=== PATIENT | female | born 1965 | race Caucasian/White ===

== ENCOUNTER → 2017-12-09 | Outpatient (CLI) | payer OTHER ==
[~2017-12-09] MED LIST: ACET500 PO; ALBU90OI INH; ASPI325 PO; ATOR40TA; AZIT250 PO; BLOOD PRESSURE MED; CALCA500CH PO; CLIN300; CYCL10 PO; Cipro500 MG PO; DIAZ10; DIPATR PO; Dilaudid 2 mg Ta2 MG PO; FURO40; Flagyl500 MG PO; HYDACE5325 PO; HYDMOR2 PO; HYDMOR4 PO; IBUP800 PO; INSLIS75I SC; LEVFLO500 PO; LORA1 PO; Ms Contin100 MG PO; OMEP20ER PO; ONDA4ODT MM; OXYACE5T PO; OXYC5; POTASSIUM; PRED20 PO; PROM25 PO; PROZAC20 MG PO; Pepcid40 MG PO; Percocet 2.5-31 EACH PO; Percocet 5-3251 EACH PO; QVAR REDIHALE10.6 G1 INH; RXHYD5325 PO; RXOXYACE PO; Roxicodone5 MG PO; SENN187 PO; SUCR1 PO; SULTRIDS PO; ZESTORETIC 20-1 EAC1 PO; ZOLP5; Zofran Odt4 MG PO
[2017-12-09 18:58] LABS: Percent Saturation 36.4 % (15.0-50.0)
== END | disposition home or self-care (01) ==
LOC: LAB 14:00
PROVIDERS: Internal Medicine Hematology & Oncology
DX: C21.1 Malignant neoplasm of anal canal (principal); M25.50 Pain in unspecified joint; R91.8 Other nonspecific abnormal finding of lung field
CPT/HCPCS: 82728; 83540; 83550

== ENCOUNTER → 2018-03-15 | Outpatient (CLI) | payer MEDICARE ==
[~2018-03-15] MED LIST changes: +FLUO20 PO; -LEVFLO500 PO; +LISHYD2025 PO; -PROZAC20 MG PO; -QVAR REDIHALE10.6 G1 INH; -SENN187 PO; -ZESTORETIC 20-1 EAC1 PO
[2018-03-15 18:53] LABS: Alanine Aminotransfer (ALT/SGP 48 U/L (12-78); Albumin, Blood 3.9 g/dL (3.4-5.0); Alk Phos 136 U/L (50-136); Anion Gap 12 mmol/L (6-16); Aspartate Aminotrans (AST/SGOT 46 U/L (12-37); Bilirubin, Total 0.5 mg/dL (0.1-1.0); Blood Urea Nitrogen 11 mg/dL (8-24); Bun/Creatinine Ratio 18.1 (12.0-20.0); CO2, Blood 20 mmol/L (21-32); Calcium, Blood 9.4 mg/dL (8.5-10.1); Chloride, Blood 106 mmol/L (98-108); Creatinine, Blood 0.61 mg/dL (0.40-1.00); Glomerular Filtration Rate >60 (60-); Glucose, Blood 88 mg/dL (70-99); Potassium, Blood 4.2 mmol/L (3.5-5.5); Sodium, Blood 138 mmol/L (136-145); Total Protein, Blood 7.9 g/dL (6.4-8.2)
== END | disposition home or self-care (01) ==
LOC: LAB SHORT 17:59 → LAB 17:59
PROVIDERS: Internal Medicine Hematology & Oncology
DX: C21.1 Malignant neoplasm of anal canal (principal)
CPT/HCPCS: 80053

== ENCOUNTER → 2018-06-09 | Outpatient (CLI) | payer MEDICARE, SELFPAY ==
[2018-06-09 12:06] LABS: Alanine Aminotransfer (ALT/SGP 25 U/L (12-78); Albumin, Blood 3.5 g/dL (3.4-5.0); Albumin/Globulin Ratio 0.8 (0.8-1.8); Alk Phos 133 U/L (50-136); Anion Gap 12 mmol/L (6-16); Aspartate Aminotrans (AST/SGOT 21 U/L (12-37); Bilirubin, Total 0.8 mg/dL (0.1-1.0); Blood Urea Nitrogen 15 mg/dL (8-24); Bun/Creatinine Ratio 23.8 (12.0-20.0); CO2, Blood 23 mmol/L (21-32); Calcium, Blood 9.3 mg/dL (8.5-10.1); Chloride, Blood 99 mmol/L (98-108); Creatinine, Blood 0.63 mg/dL (0.40-1.00); Globulin, Blood 4.2 g/dL (2.2-4.0); Glomerular Filtration Rate >60 (60-); Glucose, Blood 103 mg/dL (70-99); Magnesium, Blood 2.1 mg/dL (1.6-2.4); Potassium, Blood 3.8 mmol/L (3.5-5.5); Sodium, Blood 134 mmol/L (136-145); Total Protein, Blood 7.7 g/dL (6.4-8.2)
== END | disposition home or self-care (01) ==
LOC: LAB SHORT 11:13 → LAB 11:13
PROVIDERS: Internal Medicine Hematology & Oncology
DX: C34.90 Malignant neoplasm of unspecified part of unspecified bronchus or lung (principal)
CPT/HCPCS: 80053; 83735

== ENCOUNTER → 2018-07-01 | Outpatient (CLI) | payer MEDICARE, SELFPAY ==
[2018-07-01 10:50] LABS: Alanine Aminotransfer (ALT/SGP 33 U/L (12-78); Albumin/Globulin Ratio 0.8 (0.8-1.8); Alk Phos 104 U/L (50-136); Anion Gap 11 mmol/L (6-16); Aspartate Aminotrans (AST/SGOT 20 U/L (12-37); Bilirubin, Total 0.3 mg/dL (0.1-1.0); Blood Urea Nitrogen 9 mg/dL (8-24); Bun/Creatinine Ratio 14.3 (12.0-20.0); CO2, Blood 26 mmol/L (21-32); Calcium, Blood 8.7 mg/dL (8.5-10.1); Chloride, Blood 97 mmol/L (98-108); Creatinine, Blood 0.63 mg/dL (0.40-1.00); Glomerular Filtration Rate >60 (60-); Glucose, Blood 125 mg/dL (70-99); Magnesium, Blood 1.9 mg/dL (1.6-2.4); Potassium, Blood 3.6 mmol/L (3.5-5.5); Sodium, Blood 134 mmol/L (136-145)
== END ==
LOC: LAB 10:21 → LAB SHORT 10:21
PROVIDERS: Internal Medicine Hematology & Oncology
DX: C34.90 Malignant neoplasm of unspecified part of unspecified bronchus or lung (principal)
CPT/HCPCS: 80053; 83735

== ENCOUNTER → 2018-07-07 | Outpatient (CLI) | payer MEDICARE, SELFPAY ==
[2018-07-07 14:31] LABS: Alanine Aminotransfer (ALT/SGP 28 U/L (12-78); Albumin/Globulin Ratio 0.8 (0.8-1.8); Alk Phos 93 U/L (50-136); Anion Gap 11 mmol/L (6-16); Aspartate Aminotrans (AST/SGOT 23 U/L (12-37); Bilirubin, Total 0.4 mg/dL (0.1-1.0); Blood Urea Nitrogen 13 mg/dL (8-24); Bun/Creatinine Ratio 21.6 (12.0-20.0); CO2, Blood 25 mmol/L (21-32); Calcium, Blood 8.4 mg/dL (8.5-10.1); Chloride, Blood 99 mmol/L (98-108); Globulin, Blood 3.8 g/dL (2.2-4.0); Glomerular Filtration Rate >60 (60-); Glucose, Blood 105 mg/dL (70-99); Magnesium, Blood 1.8 mg/dL (1.6-2.4); Potassium, Blood 3.6 mmol/L (3.5-5.5); Sodium, Blood 135 mmol/L (136-145); Total Protein, Blood 6.8 g/dL (6.4-8.2)
== END | disposition home or self-care (01) ==
LOC: LAB 12:50 → LAB SHORT 12:50
PROVIDERS: Internal Medicine Hematology & Oncology
DX: C34.90 Malignant neoplasm of unspecified part of unspecified bronchus or lung (principal)
CPT/HCPCS: 80053; 83735

== ENCOUNTER → 2018-07-07 | Outpatient (CLI) | payer MEDICARE, SELFPAY ==
[~2018-07-07] MED LIST changes: -FLUO20 PO; -LISHYD2025 PO; +PROZAC20 MG PO; +SENN187 PO; +ZESTORETIC 20-1 EAC1 PO
[2018-07-07 10:06] LABS: Source, Urine Clean Catch
[2018-07-07 10:26] LABS: Bilirubin, Urine Neg (Neg); Blood, Urine Neg (Neg); Glucose Qualitative, Urine Neg (Neg); Ketones, Urine Neg (Neg); Leukocyte Esterase, Urine Neg (Neg); Nitrite, Urine Neg (Neg); Protein, Urine Neg (Neg); Urobilinogen, Urine NORM (Normal)
[2018-07-07 10:37] LABS: Appearance, Urine Clear (Clear); Color, Urine Yellow (P-Yellow)
== END ==
LOC: LAB 10:05 → LAB SHORT 10:05
PROVIDERS: Radiology Radiation Oncology
DX: R30.0 Dysuria (principal)
CPT/HCPCS: 81003

== ENCOUNTER 2018-07-10 16:28 | Inpatient (IN) | payer MEDICARE, SELFPAY ==
[~2018-07-10] VITALS: Ht 165.1 cm; Wt 71.2 kg
[~2018-07-10 16:28] MED LIST changes: -SENN187 PO
[2018-07-10 17:20] LABS: BASOPHILS ABSOLUTE AUTO 0.02 K/mm3 (0.00-0.23); BASOPHILS PERCENT AUTO 0 % (0-2); EOSINOPHILS PERCENT AUTO 0 % (0-6); Hematocrit 39.6 % (33.0-51.0); Hemoglobin 13.6 g/dL (11.5-16.0); IMMATURE GRAN ABSOLUTE AUTO 0.02 K/mm3 (0.00-0.10); IMMATURE GRAN PERCENT AUTO 0 % (0-1); LYMPHOCYTES ABSOLUTE AUTO 0.28 K/mm3 (0.84-5.20); LYMPHOCYTES PERCENT AUTO 4 % (21-46); MONOCYTES ABSOLUTE AUTO 0.25 K/mm3 (0.16-1.47); MONOCYTES PERCENT AUTO 4 % (4-13); Mean Corpuscular HGB 30.4 pg (26.0-34.0); Mean Corpuscular HGB Conc 34.3 g/dL (31.5-36.5); Mean Corpuscular Volume 88 fL (80-100); Mean Platelet Volume 8.8 fL (9.1-12.4); NEUTROPHILS ABSOLUTE AUTO 5.78 K/mm3 (1.96-9.15); NEUTROPHILS PERCENT AUTO 91 % (41-73); Platelet Count 338 K/mm3 (150-400); RDW Coefficient Variation 12.9 % (11.7-14.2); RDW Standard Deviation 41.8 fL (35.1-46.3); Red Blood Cell Count 4.48 M/mm3 (3.80-5.20); White Blood Cell Count 6.35 K/mm3 (4.00-11.30)
[2018-07-10 17:42] LABS: Alanine Aminotransfer (ALT/SGP 29 U/L (12-78); Albumin, Blood 3.6 g/dL (3.4-5.0); Albumin/Globulin Ratio 0.8 (0.8-1.8); Alk Phos 108 U/L (50-136); Anion Gap 14 mmol/L (6-16); Aspartate Aminotrans (AST/SGOT 24 U/L (12-37); Bilirubin, Total 0.6 mg/dL (0.1-1.0); Blood Urea Nitrogen 17 mg/dL (8-24); Bun/Creatinine Ratio 23.1 (12.0-20.0); CO2, Blood 20 mmol/L (21-32); Calcium, Blood 10.7 mg/dL (8.5-10.1); Chloride, Blood 98 mmol/L (98-108); Creatinine, Blood 0.74 mg/dL (0.40-1.00); Globulin, Blood 4.8 g/dL (2.2-4.0); Glomerular Filtration Rate >60 (60-); Glucose, Blood 142 mg/dL (70-99); Potassium, Blood 3.6 mmol/L (3.5-5.5); Sodium, Blood 132 mmol/L (136-145); Total Protein, Blood 8.4 g/dL (6.4-8.2)
[2018-07-11 05:01] LABS: Anion Gap 6 mmol/L (6-16); Blood Urea Nitrogen 17 mg/dL (8-24); Bun/Creatinine Ratio 28.1 (12.0-20.0); CO2, Blood 25 mmol/L (21-32); Calcium, Blood 8.1 mg/dL (8.5-10.1); Chloride, Blood 105 mmol/L (98-108); Glomerular Filtration Rate >60 (60-); Glucose, Blood 104 mg/dL (70-99); Potassium, Blood 3.8 mmol/L (3.5-5.5); Sodium, Blood 136 mmol/L (136-145)
[2018-07-12 04:38] LABS: BASOPHILS ABSOLUTE AUTO 0.01 K/mm3 (0.00-0.23); BASOPHILS PERCENT AUTO 1 % (0-2); EOSINOPHILS PERCENT AUTO 0 % (0-6); Hematocrit 29.4 % (33.0-51.0); Hemoglobin 9.5 g/dL (11.5-16.0); IMMATURE GRAN ABSOLUTE AUTO 0.01 K/mm3 (0.00-0.10); IMMATURE GRAN PERCENT AUTO 1 % (0-1); LYMPHOCYTES PERCENT AUTO 19 % (21-46); MONOCYTES ABSOLUTE AUTO 0.15 K/mm3 (0.16-1.47); MONOCYTES PERCENT AUTO 10 % (4-13); Mean Corpuscular HGB 30.4 pg (26.0-34.0); Mean Corpuscular HGB Conc 32.3 g/dL (31.5-36.5); Mean Platelet Volume 8.7 fL (9.1-12.4); NEUTROPHILS ABSOLUTE AUTO 1.11 K/mm3 (1.96-9.15); NEUTROPHILS PERCENT AUTO 70 % (41-73); Platelet Count 209 K/mm3 (150-400); RDW Coefficient Variation 13.4 % (11.7-14.2); RDW Standard Deviation 46.1 fL (35.1-46.3); Red Blood Cell Count 3.12 M/mm3 (3.80-5.20); White Blood Cell Count 1.58 K/mm3 (4.00-11.30)
[2018-07-12 04:53] LABS: Anion Gap 9 mmol/L (6-16); Blood Urea Nitrogen 12 mg/dL (8-24); Bun/Creatinine Ratio 23.3 (12.0-20.0); CO2, Blood 22 mmol/L (21-32); Calcium, Blood 7.9 mg/dL (8.5-10.1); Chloride, Blood 108 mmol/L (98-108); Creatinine, Blood 0.52 mg/dL (0.40-1.00); Glomerular Filtration Rate >60 (60-); Glucose, Blood 79 mg/dL (70-99); Potassium, Blood 3.6 mmol/L (3.5-5.5); Sodium, Blood 139 mmol/L (136-145)
[2018-07-12 05:03] LABS: Mean Corpuscular Volume 94 fL (80-100)
[2018-07-13 04:43] LABS: BASOPHILS PERCENT AUTO 0 % (0-2); EOSINOPHILS ABSOLUTE AUTO 0.01 K/mm3 (0.00-0.68); EOSINOPHILS PERCENT AUTO 1 % (0-6); Hematocrit 29.4 % (33.0-51.0); Hemoglobin 9.5 g/dL (11.5-16.0); IMMATURE GRAN ABSOLUTE AUTO 0.02 K/mm3 (0.00-0.10); IMMATURE GRAN PERCENT AUTO 1 % (0-1); LYMPHOCYTES ABSOLUTE AUTO 0.28 K/mm3 (0.84-5.20); LYMPHOCYTES PERCENT AUTO 18 % (21-46); MONOCYTES ABSOLUTE AUTO 0.13 K/mm3 (0.16-1.47); MONOCYTES PERCENT AUTO 8 % (4-13); Mean Corpuscular HGB Conc 32.3 g/dL (31.5-36.5); Mean Corpuscular Volume 93 fL (80-100); Mean Platelet Volume 8.8 fL (9.1-12.4); NEUTROPHILS ABSOLUTE AUTO 1.14 K/mm3 (1.96-9.15); NEUTROPHILS PERCENT AUTO 72 % (41-73); Platelet Count 204 K/mm3 (150-400); RDW Coefficient Variation 13.3 % (11.7-14.2); RDW Standard Deviation 44.7 fL (35.1-46.3); Red Blood Cell Count 3.17 M/mm3 (3.80-5.20); White Blood Cell Count 1.58 K/mm3 (4.00-11.30)
[2018-07-13] MEDS ORDERED: HYDMOR4 PO (20:36)
[2018-07-14] MEDS ORDERED: SENN187 PO (09:21)
== END 2018-07-14 10:21 | disposition home or self-care (01) | DRG 389 ==
LOC: ER 16:28 → SURS 20:14 → MEDS 20:14 → ENPENDDIS 07-14 09:29 → MEDS 07-14 10:21
PROVIDERS: Internal Medicine
DX: K56.51 Intestinal adhesions [bands], with partial obstruction (principal); E87.1 Hypo-osmolality and hyponatremia; C20 Malignant neoplasm of rectum; Z92.21 Personal history of antineoplastic chemotherapy; I10 Essential (primary) hypertension; F32.9 Major depressive disorder, single episode, unspecified; Z85.048 Personal history of other malignant neoplasm of rectum, rectosigmoid junction, and anus; Z90.49 Acquired absence of other specified parts of digestive tract; Z92.3 Personal history of irradiation; E78.5 Hyperlipidemia, unspecified; D64.81 Anemia due to antineoplastic chemotherapy; F17.210 Nicotine dependence, cigarettes, uncomplicated
CPT/HCPCS: 36415; 74018; 74176; 74250; 80048; 80053; 81003; 83690; 83735; 85025; 93005; 93010; 96361; 96374; 96375; 96376; 99285-25; J1170; J1650; J2405; J3010; J7030; Q9963

== ENCOUNTER → 2018-07-15 | Outpatient (CLI) | payer MEDICARE, SELFPAY ==
[~2018-07-15] MED LIST changes: +SENN187 PO
[2018-07-15 13:03] LABS: Alanine Aminotransfer (ALT/SGP 33 U/L (12-78); Albumin, Blood 3.2 g/dL (3.4-5.0); Albumin/Globulin Ratio 0.9 (0.8-1.8); Alk Phos 91 U/L (50-136); Anion Gap 5 mmol/L (6-16); Aspartate Aminotrans (AST/SGOT 23 U/L (12-37); Bilirubin, Total 0.4 mg/dL (0.1-1.0); Blood Urea Nitrogen 7 mg/dL (8-24); CO2, Blood 28 mmol/L (21-32); Calcium, Blood 8.8 mg/dL (8.5-10.1); Chloride, Blood 108 mmol/L (98-108); Creatinine, Blood 0.64 mg/dL (0.40-1.00); Globulin, Blood 3.5 g/dL (2.2-4.0); Glomerular Filtration Rate >60 (60-); Glucose, Blood 80 mg/dL (70-99); Magnesium, Blood 1.8 mg/dL (1.6-2.4); Potassium, Blood 3.7 mmol/L (3.5-5.5); Sodium, Blood 141 mmol/L (136-145); Total Protein, Blood 6.7 g/dL (6.4-8.2)
== END ==
LOC: LAB SHORT 09:10 → LAB 09:10
PROVIDERS: Internal Medicine Hematology & Oncology
DX: C34.90 Malignant neoplasm of unspecified part of unspecified bronchus or lung (principal)
CPT/HCPCS: 80053; 83735

== ENCOUNTER → 2018-07-28 | Outpatient (CLI) | payer MEDICARE, SELFPAY ==
[2018-07-28 13:08] LABS: Appearance, Urine Cloudy (Clear); Bilirubin, Urine Neg (Neg); Blood, Urine 3+ (Neg); Color, Urine Amber (P-Yellow); Glucose Qualitative, Urine Neg (Neg); Ketones, Urine Neg (Neg); Leukocyte Esterase, Urine 3+ (Neg); Nitrite, Urine Pos (Neg); Protein, Urine 2+ (Neg); Urobilinogen, Urine 2+ (Normal); pH, Urine 6.5 (5.0-8.0)
[2018-07-28 13:24] LABS: Free Thyroxine 1.67 ng/dL (0.70-1.60)
[2018-07-28 13:26] LABS: Alanine Aminotransfer (ALT/SGP 26 U/L (12-78); Albumin, Blood 3.1 g/dL (3.4-5.0); Albumin/Globulin Ratio 0.7 (0.8-1.8); Alk Phos 112 U/L (50-136); Anion Gap 15 mmol/L (6-16); Aspartate Aminotrans (AST/SGOT 46 U/L (12-37); Bilirubin, Total 0.8 mg/dL (0.1-1.0); Blood Urea Nitrogen 18 mg/dL (8-24); Bun/Creatinine Ratio 20.2 (12.0-20.0); CO2, Blood 23 mmol/L (21-32); Chloride, Blood 92 mmol/L (98-108); Creatinine, Blood 0.89 mg/dL (0.40-1.00); Globulin, Blood 4.6 g/dL (2.2-4.0); Glomerular Filtration Rate >60 (60-); Glucose, Blood 108 mg/dL (70-99); Potassium, Blood 4.2 mmol/L (3.5-5.5); Sodium, Blood 130 mmol/L (136-145); Total Protein, Blood 7.7 g/dL (6.4-8.2)
[2018-07-28 13:34] LABS: White Blood Cells, Urine TNTC /hpf (0-5)
[2018-07-28 13:36] LABS: Bacteria Mod /hpf; Squamous Epithelial Cells Few /hpf (Few)
== END ==
LOC: LAB 12:50 → LAB SHORT 12:50
PROVIDERS: Internal Medicine Hematology & Oncology
DX: C34.90 Malignant neoplasm of unspecified part of unspecified bronchus or lung (principal); R30.0 Dysuria; M25.50 Pain in unspecified joint; E78.5 Hyperlipidemia, unspecified
CPT/HCPCS: 80053; 81001; 84439; 84443; 87077; 87086; 87186

== ENCOUNTER → 2018-08-04 | Outpatient (CLI) | payer MEDICARE, SELFPAY ==
[2018-08-04 17:42] LABS: Alanine Aminotransfer (ALT/SGP 34 U/L (12-78); Albumin, Blood 3.2 g/dL (3.4-5.0); Albumin/Globulin Ratio 0.9 (0.8-1.8); Alk Phos 99 U/L (50-136); Anion Gap 14 mmol/L (6-16); Aspartate Aminotrans (AST/SGOT 23 U/L (12-37); Bilirubin, Total 0.2 mg/dL (0.1-1.0); Blood Urea Nitrogen 20 mg/dL (8-24); Bun/Creatinine Ratio 23.9 (12.0-20.0); CO2, Blood 23 mmol/L (21-32); Calcium, Blood 8.9 mg/dL (8.5-10.1); Chloride, Blood 99 mmol/L (98-108); Creatinine, Blood 0.84 mg/dL (0.40-1.00); Globulin, Blood 3.7 g/dL (2.2-4.0); Glomerular Filtration Rate >60 (60-); Glucose, Blood 106 mg/dL (70-99); Potassium, Blood 3.8 mmol/L (3.5-5.5); Sodium, Blood 136 mmol/L (136-145); Total Protein, Blood 6.9 g/dL (6.4-8.2)
[2018-08-06 04:08] LABS: HBSAG SCREEN Negative (Negative); HEP B CORE AB, TOT Negative (Negative); HEP C VIRUS AB <0.1 (0.0-0.9)
== END | disposition home or self-care (01) ==
LOC: LAB SHORT 10:00 → LAB 10:00
PROVIDERS: Internal Medicine Hematology & Oncology
DX: Z00.00 Encounter for general adult medical examination without abnormal findings (principal); C34.90 Malignant neoplasm of unspecified part of unspecified bronchus or lung
CPT/HCPCS: 80053; 86704; 86708; 86803; 87340

== ENCOUNTER → 2019-04-06 | Outpatient (CLI) | payer MEDICARE, OTHER ==
[~2019-04-06] MED LIST changes: +LEVFLO500 PO; +QVAR REDIHALE10.6 G1 INH
[2019-04-06 20:32] LABS: Alanine Aminotransfer (ALT/SGP 19 U/L (12-78); Albumin, Blood 3.4 g/dL (3.4-5.0); Albumin/Globulin Ratio 0.8 (0.8-1.8); Alk Phos 137 U/L (50-136); Anion Gap 9 mmol/L (6-16); Aspartate Aminotrans (AST/SGOT 15 U/L (12-37); Bilirubin, Total 0.3 mg/dL (0.1-1.0); Blood Urea Nitrogen 11 mg/dL (8-24); Bun/Creatinine Ratio 19.5 (12.0-20.0); CO2, Blood 28 mmol/L (21-32); Calcium, Blood 9.7 mg/dL (8.5-10.1); Chloride, Blood 98 mmol/L (98-108); Creatinine, Blood 0.56 mg/dL (0.40-1.00); Globulin, Blood 4.1 g/dL (2.2-4.0); Glomerular Filtration Rate >60 (60-); Glucose, Blood 88 mg/dL (70-99); Potassium, Blood 4.6 mmol/L (3.5-5.5); Sodium, Blood 135 mmol/L (136-145); Total Protein, Blood 7.5 g/dL (6.4-8.2)
== END | disposition home or self-care (01) ==
LOC: LAB 16:24 → LAB SHORT 16:24
PROVIDERS: Internal Medicine Hematology & Oncology
DX: C34.12 Malignant neoplasm of upper lobe, left bronchus or lung (principal)
CPT/HCPCS: 80053

== ENCOUNTER 2019-04-08 14:57 | Observation (INO) | payer MEDICARE, OTHER ==
[~2019-04-08] VITALS: Ht 160 cm; Wt 70.1 kg
[2019-04-08 15:35] LABS: BASOPHILS ABSOLUTE AUTO 0.06 K/mm3 (0.00-0.23); BASOPHILS PERCENT AUTO 1 % (0-2); EOSINOPHILS ABSOLUTE AUTO 0.02 K/mm3 (0.00-0.68); EOSINOPHILS PERCENT AUTO 0 % (0-6); Hematocrit 38.3 % (33.0-51.0); Hemoglobin 12.5 g/dL (11.5-16.0); IMMATURE GRAN ABSOLUTE AUTO 0.12 K/mm3 (0.00-0.10); IMMATURE GRAN PERCENT AUTO 1 % (0-1); LYMPHOCYTES ABSOLUTE AUTO 1.18 K/mm3 (0.84-5.20); LYMPHOCYTES PERCENT AUTO 11 % (21-46); MONOCYTES ABSOLUTE AUTO 0.73 K/mm3 (0.16-1.47); MONOCYTES PERCENT AUTO 7 % (4-13); Mean Corpuscular HGB 30.3 pg (26.0-34.0); Mean Corpuscular HGB Conc 32.6 g/dL (31.5-36.5); Mean Corpuscular Volume 93 fL (80-100); Mean Platelet Volume 8.6 fL (9.1-12.4); NEUTROPHILS ABSOLUTE AUTO 8.26 K/mm3 (1.96-9.15); NEUTROPHILS PERCENT AUTO 80 % (41-73); Platelet Count 591 K/mm3 (150-400); RDW Coefficient Variation 13.8 % (11.7-14.2); RDW Standard Deviation 47.2 fL (35.1-46.3); Red Blood Cell Count 4.12 M/mm3 (3.80-5.20); White Blood Cell Count 10.37 K/mm3 (4.00-11.30)
[2019-04-08 15:59] LABS: Alanine Aminotransfer (ALT/SGP 19 U/L (12-78); Albumin, Blood 3.2 g/dL (3.4-5.0); Albumin/Globulin Ratio 0.6 (0.8-1.8); Alk Phos 125 U/L (50-136); Anion Gap 11 mmol/L (6-16); Aspartate Aminotrans (AST/SGOT 18 U/L (12-37); Bilirubin, Total 0.2 mg/dL (0.1-1.0); Blood Urea Nitrogen 14 mg/dL (8-24); Bun/Creatinine Ratio 25.3 (12.0-20.0); CO2, Blood 22 mmol/L (21-32); Chloride, Blood 101 mmol/L (98-108); Creatinine, Blood 0.55 mg/dL (0.40-1.00); Globulin, Blood 5.2 g/dL (2.2-4.0); Glomerular Filtration Rate >60 (60-); Glucose, Blood 88 mg/dL (70-99); Potassium, Blood 3.6 mmol/L (3.5-5.5); Sodium, Blood 134 mmol/L (136-145); Total Protein, Blood 8.4 g/dL (6.4-8.2); Troponin I 0.141 ng/mL (0.000-0.040)
[2019-04-08] MEDS ORDERED: ACET500 PO (19:38)
[2019-04-08] MEDS ORDERED: COMBO (19:41)
[2019-04-08 20:10] LABS: Thyroid Stimulating Hormone 0.755 uIU/mL (0.360-4.800)
--- NOTE | 2019-04-08 21:44 | NUR ---
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 REPORT RECEIVED FROM [facility] RN. ASSUMED CARE. PT TO ROOM AT 1905. PT NOTED TO HAVE FACIAL LACERATIONS, ECCHYMOSIS, AND HEMATOMAS SECONDARY TO HER THIRD FALL THIS WEEK (ACCORDING TO PT). SHE STATES THAT SHE HAS "BLACKED OUT" AND HIT HER HEAD AND RIGHT LOWER RIBS AND HAS BEEN INJURED IN EACH FALL. HAS GONE TO SEE HER PCP ONCE AFTER A FALL. PT'S MAIN COMPLAINT IS OF FACIAL PAIN WHICH SHE RATES 9/10. SAID SHE WAS ONLY TAKING TYLENOL AT HOME FOR THIS PAIN WITHOUT SUCCESS. PT STATES EXTENSIVE [place] HISTORY WHEREAS SHE WAS GIVEN DILAUDID FOR PAIN. DID ADMINISTER 25 MCG FENTANYL FOR FACIAL PAIN WHICH SHE STATES DID NOT HELP AT ALL. FOLLOW UP MEDICATION WITH 2 NORCO. PT CURRENTLY SLEEPING IN BED. RIGHT GROIN ACCESS SITE WITH BLOOD ON DRESSING WHICH WAS PRESENTED BY CATH TEAM AND HAS NOT CHANGED SINCE ARRIVING TO ROOM. PT MAINTAINS PALPABLE PERIPHERAL PULSES. GROIN SITE SOFT WITHOUT HEMATOMA. HAVE RECEIVED PTT RESULTS WHICH ARE OVER [address]. PT TO HAVE CT THIS NIGHT. WILL AWAIT SEVERAL HOURS BEFORE GOING FOR CT FOR PRECAUTIONS TO PREVENT REBLEED. EXPLAINED THIS TO PT. WILL CALL RADIOLOGY DEPARTMENT TO GIVE UPDATE. 18 GAUGE IV STARTED IN RIGHT UPPER ARM FOR ACCESS FOR CONTRAST. WILL REVIEW CHART AND PLAN OF CARE FOR THIS PT. WILL CONTINUE TO MONITOR GROIN SITE PER PROTOCOLS.
--- NOTE | 2019-04-08 23:14 | NUR ---
LAB DRAW FROM 18 SITE. GROIN SITE WNL. VSS. PT ORIENTED. PT REFUSED ICE FOR SWELLING ON FACE. CALL LIGHT WITHIN REACH.
[2019-04-08 23:39] LABS: Creatine Kinase MB 2.4 ng/mL (0.0-3.6); Creatine Kinase MB Index 2.8 (0.0-4.0); Troponin I 0.291 ng/mL (0.000-0.040)
[2019-04-09 01:38] LABS: U Amphetamine Screen Not Detected; U Barbituate Screen Not Detected; U Benzodiazapine Screen Not Detected; U Buprenorphine Screen Not Detected; U Cannabinoids Screen Not Detected; U Cocaine Screen Not Detected; U Methadone Screen Not Detected; U Methamphetamine Screen Not Detected; U Opiates Screen DETECTED; U Oxycodone Screen Not Detected; U Phencyclidine Screen Not Detected; U Propoxyphene Screen Not Detected
--- NOTE | 2019-04-09 02:41 | NUR ---
PT COMPLETES TIME OF BEING SUPINE EARLIER THIS AM. PT DOES GET UP TO COMMODE TO VOID. DURING THIS PROCESS, ORTHOSTATIC BLOOD PRESSURES WERE DONE AND RECORDED. SEE VITAL SIGN FLOWSHEET FOR DETAILS. PT DENIES VERTIGO AND NAUSEA DURING THIS TIME. PRESSURE AND HEART RATE CHANGES WERE MINIMAL DURING POSITION CHANGES. PT VOIDS Q.S. SAMPLE SENT TO LAB FOR PROCESSING. PT TO HAVE CT OF CHEST TO R/O PE. AWAITING AVAILABILITY OF RADIOLOGY DEPARTMENT. PT AWARE AND IS ACCEPTING. WILL CONTINUE TO MONITOR PT.
[2019-04-09 06:18] LABS: BASOPHILS ABSOLUTE AUTO 0.04 K/mm3 (0.00-0.23); BASOPHILS PERCENT AUTO 1 % (0-2); EOSINOPHILS ABSOLUTE AUTO 0.02 K/mm3 (0.00-0.68); EOSINOPHILS PERCENT AUTO 0 % (0-6); Hematocrit 32.2 % (33.0-51.0); Hemoglobin 10.4 g/dL (11.5-16.0); IMMATURE GRAN ABSOLUTE AUTO 0.05 K/mm3 (0.00-0.10); IMMATURE GRAN PERCENT AUTO 1 % (0-1); LYMPHOCYTES ABSOLUTE AUTO 0.68 K/mm3 (0.84-5.20); LYMPHOCYTES PERCENT AUTO 10 % (21-46); MONOCYTES ABSOLUTE AUTO 0.64 K/mm3 (0.16-1.47); MONOCYTES PERCENT AUTO 9 % (4-13); Mean Corpuscular HGB 30.3 pg (26.0-34.0); Mean Corpuscular HGB Conc 32.3 g/dL (31.5-36.5); Mean Corpuscular Volume 94 fL (80-100); Mean Platelet Volume 8.7 fL (9.1-12.4); NEUTROPHILS ABSOLUTE AUTO 5.68 K/mm3 (1.96-9.15); NEUTROPHILS PERCENT AUTO 80 % (41-73); Platelet Count 456 K/mm3 (150-400); RDW Standard Deviation 48.2 fL (35.1-46.3); Red Blood Cell Count 3.43 M/mm3 (3.80-5.20); White Blood Cell Count 7.11 K/mm3 (4.00-11.30)
--- NOTE | 2019-04-09 06:40 | NUR ---
PT HAS BEEN TO CT FOR CHEST CT R/O PE. CALL MADE FROM RADIOLOGIST AND THEN FROM DR PEÑA CONCERNING CT. DISCUSSED PT WITH DR PEÑA. NO NEW ORDERS RECEIVED. PT HAS NO COMPLAINTS OF CHEST PAIN OR PRESSURE THIS NIGHT. PT DOES HAVE COMPLAINTS OF FACIAL PAIN SECONDARYT TO TRAUMA SHE RECEIVED WITH HER MULTIPLE FALLS AT HOME. PT STATES PAIN 08/01 AND 08/31. HAVE MEDICATED PT TWICE WITH 2 NORCOS. PT CURRENTLY RESTING IN BED WITHOUT COMPLAINTS. WILL CONTINUE TO MONITOR PT, AND WILL REPORT OFF TO ONCOMING RN.
[2019-04-09 06:43] LABS: Alanine Aminotransfer (ALT/SGP 17 U/L (12-78); Albumin, Blood 2.7 g/dL (3.4-5.0); Albumin/Globulin Ratio 0.7 (0.8-1.8); Alk Phos 114 U/L (50-136); Anion Gap 8 mmol/L (6-16); Aspartate Aminotrans (AST/SGOT 20 U/L (12-37); Bilirubin, Total 0.3 mg/dL (0.1-1.0); Blood Urea Nitrogen 16 mg/dL (8-24); Bun/Creatinine Ratio 27.9 (12.0-20.0); CHOL/HDL RATIO 4.8; CO2, Blood 23 mmol/L (21-32); Calcium, Blood 8.6 mg/dL (8.5-10.1); Chloride, Blood 103 mmol/L (98-108); Cholesterol 167 mg/dL (50-200); Creatinine, Blood 0.57 mg/dL (0.40-1.00); Globulin, Blood 4.1 g/dL (2.2-4.0); Glomerular Filtration Rate >60 (60-); Glucose, Blood 91 mg/dL (70-99); HDL Cholesterol 35 mg/dL (>39); Low Density Lipoprotein Chol 106 mg/dL (0-110); Sodium, Blood 134 mmol/L (136-145); Total Protein, Blood 6.8 g/dL (6.4-8.2); Triglycerides 129 mg/dL (30-160); Very Low Density Lipoprot Chol 25 mg/dL (6-32)
[2019-04-09 06:50] LABS: Creatine Kinase MB 1.7 ng/mL (0.0-3.6); Creatine Kinase MB Index 2.4 (0.0-4.0); Troponin I 0.267 ng/mL (0.000-0.040)
--- NOTE | 2019-04-09 07:45 | NUR ---
Recieved report from Terry RN. Patient sitting up in bed awake listening to music as waled into room. Her speech was clear and she was able to communicate any of her needs. She is on RA and sats in the upper 90%'s. She has some bruises and abrasions , eyes, nose and mouth from fall. MAEW normal strengths. She has 2oga IV in LFA that i removed courtney was bothering her and was bruised no swelling. She also has 18ga IV LYNDA and 20ga IV in RFA, both have dressings intact and sites WNL's. They were both flushed and SL'd. Dr Bishop in room and will possibily discharge and have her com in tomorrow for momnitor placement. She has right groin site from cath that has neptube dressing and quarter size dried blood under dressing. No swelling, hematoma, or bleeding, just slightly tender.
--- NOTE | 2019-04-09 09:44 | NUR ---
No significant changes with patient. She tolerated meds with liquids and 50% of breakfast. She has been on phone off and on other fernandes resting in bed watching TV. She denies any dizziness.
--- NOTE | 2019-04-09 11:41 | NUR ---
PATIENT HAS BEEN UP IN ROOM WITHOUT C/O DIZZINESS AND IS AWAITING AN ECHO PRIOR TO GOING HOME. SHE HAS VBEEN UP IN SHOWER WELL.
--- NOTE | 2019-04-09 11:47 | NUR ---
No significant changes in neuro and no prposeful movements, VSS. No changes in gtt's or vent settings, or ballon pump.
--- NOTE | 2019-04-09 13:30 | NUR ---
Patient has been up in room without difficulty. Her ECHO has william done and have talked with Dr Velez and Dr Bishop and they are discussing her discharge and follow up with oncology and cardiac MRI for mass pressing on lower heart. VSS. She ate approx 50% of linch. No other significant changes.
[2019-04-09 14:54] LABS: Creatine Kinase MB 1.5 ng/mL (0.0-3.6); Creatine Kinase MB Index 2.4 (0.0-4.0); Troponin I 0.118 ng/mL (0.000-0.040)
[2019-04-09] MEDS ORDERED: ATOR40TA PO (15:42)
[2019-04-09] MEDS ORDERED: FOLI1 PO (15:42)
[2019-04-09] MEDS ORDERED: LO-DOSE ASPIRIN81 MG PO (15:42)
--- NOTE | 2019-04-09 16:36 | NUR ---
PATIENT WAS GIVEN WRITTEN DISCHARGE INSTRUCTIONS AND DISCUSSED TO SEE DR BERMAN SOON POSSIBLE AND FOLLOW UP WITH MASS PRESSING AGAINST HEART AND GO FOR CARDIAC MRI. WE REVIEWED MEDS AND WILL CALL IN TO [facility] LEFT ON ANSWERING MACHINE. IV'S WERE PULLED AND TAKEN OUT IN WHEELCHAIR TO POV
== END 2019-04-09 16:30 | disposition home or self-care (01) ==
LOC: ER 14:57 → ICUW 17:10 → ER 17:20 → ICUW 17:20
PROVIDERS: Internal Medicine Cardiovascular Disease; Physician Assistant; ADMIT Internal Medicine
DX: I21.4 Non-ST elevation (NSTEMI) myocardial infarction (principal); R77.8 Other specified abnormalities of plasma proteins; R55 Syncope and collapse; I25.10 Atherosclerotic heart disease of native coronary artery without angina pectoris; I10 Essential (primary) hypertension; E78.5 Hyperlipidemia, unspecified; Z88.2 Allergy status to sulfonamides; Z88.1 Allergy status to other antibiotic agents; F10.129 Alcohol abuse with intoxication, unspecified; F17.200 Nicotine dependence, unspecified, uncomplicated; F17.210 Nicotine dependence, cigarettes, uncomplicated; Z79.899 Other long term (current) drug therapy; Z85.118 Personal history of other malignant neoplasm of bronchus and lung; Z92.21 Personal history of antineoplastic chemotherapy; Z92.3 Personal history of irradiation; Z85.048 Personal history of other malignant neoplasm of rectum, rectosigmoid junction, and anus; Z23 Encounter for immunization
CPT/HCPCS: 36415; 70450; 71046; 71260; 80053; 80061; 82550; 82553; 83735; 83880; 84443; 84484; 85025; 85347; 85730; 90732; 93005; 93010; 93306; 93458; 96374; 99152; 99153; 99285-25; A9270-GY; C1769; C1894; G0009; G0378; G0480; J1644; J1650; J2250; J3010; J7030; Q9967